=== PATIENT | male | born 1965 | race Caucasian/White ===

== ENCOUNTER 2020-12-18 08:42 | Outpatient (CLI) | payer OTHER | END 2020-12-18 09:01 | disposition home or self-care (01) | LOC: RX STUDY 08:42 | PROVIDERS: ATTEND Internal Medicine Gastroenterology | DX: K57.92 Diverticulitis of intestine, part unspecified, without perforation or abscess without bleeding (principal) ==

== ENCOUNTER 2025-06-27 14:19 | Outpatient (CLI) | payer OTHER ==
[2025-06-27 15:27] LABS: CREATININE SERUM 0.84 mg/dL (0.70-1.30); GFR 92.89
== END 2025-06-27 14:21 | disposition home or self-care (01) ==
LOC: LAB 14:19
PROVIDERS: ATTEND Radiology Diagnostic Radiology
DX: R06.02 Shortness of breath (principal)

== ENCOUNTER 2025-06-29 07:41 | Outpatient (CLI) | payer OTHER | END 2025-06-29 07:54 | disposition home or self-care (01) | LOC: TOM 07:41 | PROVIDERS: ATTEND General Practice | DX: J45.909 Unspecified asthma, uncomplicated (principal) ==